=== PATIENT | female | born 1995 | race Caucasian/White ===

== ENCOUNTER 2016-12-18 09:47 | Emergency (ER) ==
[2016-12-18 09:53] VITALS: BP 123/65
--- NOTE | 2016-12-18 10:02 | PROVIDER DOCUMENTATION ---
HPI-EENT General - General Chief Complaint: Cold Symptoms Stated Complaint: EYE COMPLAINT/SINUS ISSUES Time Seen by Provider: 12/18/16 09:55 Source: patient Allergies/Adverse Reactions: Patient Allergies Allergy/AdvReac Type Severity Reaction Status Date / Time Penicillins Allergy ITCHING Verified 04/13/16 12:20 oxycodone HCl * AdvReac ITCHING Verified 08/05/15 07:41 [From Percocet] Home Medications: Home Medication List Medication Instructions Recorded Confirmed Last Taken Type Fluticasone 50 Mcg Nasal [place] 1 spray TYESHA DAILY #1 bottle 04/13/16 Unknown Rx [Flonase] Montelukast Chew [Singulair] 5 mg PO DAILY #30 tablet 04/13/16 Unknown Rx Guaifenesin/D-Methorphan Hb/PE 1 each PO Q6-8H PRN PRN #14 tablet 12/18/16 Unknown Rx [Deconex Dmx Tablet] Montelukast Chew [Singulair] 5 mg PO DAILY #30 tablet 12/18/16 Unknown Rx Polymyxin/Tmp Oph Solution 1 drop BOTH EYES DAILY #1 bottle 12/18/16 Unknown Rx [Polytrim Oph Solution] - History of Present Illness-EENT General Nature of Presenting Problem: This pt presents today c complaints of sinus congestion X 1 month and eye pain and redness since yesterday. She reports her son was recently diagnosed c pink eye. She denies any any fever, chills, n/v/d. Pt is currently eating breakfast in no distress. No other issues or complaints. EENT Location: reports: eye (R), facial Quality of Pain: reports: aching Severity: reports: mild Onset/Duration: reports: other (see hpi) Timing: reports: still present Prearrival Treatment: Initiated no prearrival treatment Associated Symptoms: reports: facial pain/swelling, nasal congestion/drainage, sore throat Similar Symptoms Previously?: Yes ("every year") Recently seen or treated by another doctor?: No Review of Systems - Adult - REVIEW OF SYSTEMS - ADULT Constitutional: reports: no symptoms reported. denies: chills, fever Eyes: reports: see HPI, discharge, eye pain, redness. denies: dry eyes, decreased vision, blurred vision Ears, Nose, Mouth & Throat: reports: sinus problem. denies: ear discharge, ear pain, mouth/dental pain, throat swelling Cardiovascular: reports: no symptoms reported. denies: chest pain, edema Respiratory: reports: no symptoms reported. denies: chronic cough, cough Gastrointestinal: reports: no symptoms reported. denies: abdominal pain, hematemesis Genitourinary: reports: no symptoms reported. denies: dysuria, discharge Musculoskeletal: reports: no symptoms reported. denies: bone pain, back pain Integumentary: reports: no symptoms reported. denies: hives, hair loss Neurological: reports: no symptoms reported. denies: ataxia, dizziness/vertigo Psychiatric: reports: no symptoms reported. denies: anxiety, anti-depressant use Endocrine: reports: no symptoms reported Hematologic/Lymphatic: reports: no symptoms reported Allergic/Immunologic: reports: no symptoms reported All Other Systems: Reviewed and Negative Past History - Adult - PAST MEDICAL HISTORY-ADULT Review of Records: reports: Old Records Reviewed, Nursing Assessment Review, Medications Reviewed, Social history reviewed & non-contributory. Major Childhood Illnesses: reports: denies history Cardiovascular: reports: denies history Respiratory: reports: denies history Gastrointestinal: reports: denies history Obstetrical/Gynecological: reports: denies history Genitourinary: reports: denies history Musculoskeletal: reports: denies history Neurological: reports: denies history Endocrine/Immune: reports: denies history Other Conditions: reports: denies history - PRIOR SURGERIES/PROCEDURES Surgical/Procedure History: reports: none - IMMUNIZATION STATUS Childhood Immunizations: See Nurse Assessment Flu Vaccine: See Nurse Assessment - FAMILY HISTORY Family History: diabetes Physical Exam- EENT - Physical Exam EENT Initial Vital Signs Reviewed: Yes General Appearance: appears well, alert, no apparent distress Eye Exam: right eye: conjunctival inflammation, left eye: normal inspection, bilateral eye: PERRL, EOMI Ear Exam: bilateral ear: auricle normal, canal normal, TM normal Nasal Exam: normal inspection Throat Exam: normal mouth inspection, pharynx normal. negative: pharynx tenderness, tonsillar exudate, tonsillar swelling Neck: non-tender, full range of motion, supple, normal inspection. negative: limited range of motion, lymphadenopathy, meningismus Respiratory: chest non-tender, lungs clear, normal breath sounds, no pleuratic chest pain, no respiratory distress, no accessory muscle use. negative: respiratory distress, decreased breath sounds, accessory muscle use Cardiovascular: normal peripheral pulses, regular rate, rhythm Abdominal Exam: normal bowel sounds, non tender, soft, no organomegaly, no pulsatile mass. negative: abdominal bruit, abnormal bowel sounds, distended, guarding, rigid, rebound, tenderness Back Exam: normal inspection, no CVA tenderness, no vertebral tenderness Extremity: normal range of motion, non-tender, normal gait, normal inspection Integumentary: normal color, normal turgor, warm/dry Neurologic: grossly normal, no motor/sensory deficits Psych/Mental Status: normal mood/affect, normal thought content, normal thought process, oriented x 3 Progress - PLAN OF CARE/RESULTS Progress/Plan/Lab Results: Vital Signs Temp Pulse Resp BP Pulse Ox 12/18/16 09:50 98.3 F 70 16 123/65 100 Penicillins Allergy (Verified 04/13/16 12:20) ITCHING oxycodone HCl * [From Percocet] Adverse Reaction (Verified 08/05/15 07:41) ITCHING Fluticasone 50 Mcg Nasal [place] [Flonase] 1 spray TYESHA DAILY #1 bottle 04/13/16 Montelukast Chew [Singulair] 5 mg PO DAILY #30 tablet 04/13/16 Departure - Departure Time of Disposition Order: 10:01 DIAGNOSIS: Conjunctivitis Qualifiers: Conjunctivitis type: acute Acute conjunctivitis type: unspecified Laterality: right Qualified Code(s): H10.31 - Unspecified acute conjunctivitis, right eye Sinusitis Qualifiers: Sinusitis location: pansinusitis Chronicity: unspecified Qualified Code(s): J32.4 - Chronic pansinusitis Disposition: HOME 01 Certified Medical Emergency: Urgent Condition: Good Additional Instructions: Take medication as prescribed. Follow up with an electrician assistant as needed. Return to the ER for any new or worsening symptoms. ED Follow Up Instructions: You have been treated by a care provider in the Emergency Department. These instructions are being provided to you so you can have an understanding of how to care for yourself upon discharge. Upon discharge from the Emergency Department, you are responsible for making arrangements for follow-up care by a physician of your choice. Take all prescribed medications as directed. Return to the Emergency Department immediately for any new or worsening symptoms. You may call the Physician Referral phone number at [phone] to obtain a list of Physicians who are taking new patients. Prescriptions: Guaifenesin/D-Methorphan Hb/PE [Deconex Dmx Tablet] 1 each PO Q6-8H PRN PRN #14 tablet PRN Reason: Cough and congestion Polymyxin/Tmp Oph Solution [Polytrim Oph Solution] 1 drop BOTH EYES DAILY #1 bottle Montelukast Chew [Singulair] 5 mg PO DAILY #30 tablet Referrals: Hermelinda Holland CRNP [Primary Care Provider] - Jen Zamudio MD [STAFF PHYSICIAN] - Attestation - Physician/ SAVANNAH Attestation Patient care was provided by Advanced Practice Provider:: Yes Advanced Practice Provider:: Ben Morrow Advanced Practice Provider documentation review:: The Mid-level provider documentation, treatment plan and medical decision making was reviewed by the physician who agrees with all treatment and medical decision making by the MLP.
[2016-12-18] MEDS ORDERED: DECADRON IM ONE (10:23)
== END 2016-12-18 10:32 | disposition home or self-care (01) ==
LOC: ED 09:47
DX: J32.4 Chronic pansinusitis (principal); H10.31 Unspecified acute conjunctivitis, right eye; R09.81 Nasal congestion; H57.11 Ocular pain, right eye; R51 Headache; J02.9 Acute pharyngitis, unspecified; Z79.51 Long term (current) use of inhaled steroids